=== PATIENT | male | born 1975 | race Caucasian/White ===

== ENCOUNTER 2020-10-21 10:22 | Emergency (ER) | payer OTHER ==
[2020-10-21] MEDS ORDERED: HYDROcodone/Acetaminophen 5/325 mg Tablet ONE (11:04)
== END 2020-10-21 11:15 | disposition home or self-care (01) ==
LOC: NAV ERS 10:22
DX: S51.811A Laceration without foreign body of right forearm, initial encounter (principal); S99.921A Unspecified injury of right foot, initial encounter; F17.210 Nicotine dependence, cigarettes, uncomplicated; W18.30XA Fall on same level, unspecified, initial encounter
CPT/HCPCS: 99283

== ENCOUNTER 2021-12-25 12:15 | Emergency (ER) | payer SELFPAY ==
[~2021-12-25 12:15] MED LIST: Iopamidol 370 76% 100 ML VIAL ONE
[2021-12-25] MEDS ORDERED: Sodium Chloride 0.9% 1,000 ML ONE ×2 (12:30→13:50)
[2021-12-25] MEDS ORDERED: Dicyclomine 20 MG TAB ONE (12:31)
[2021-12-25 12:49] LABS: Hemoglobin 16.4 g/dL (14.0-18.0); Mean Corpuscular HGB CONC 33.6 g/dL (32.0-36.0); Mean Corpuscular Hemoglobin 34.8 pg (27.0-31.0); Mean Platelet Volume 6.4 fL (7.4-10.4); Platelet Count 226 thou/uL (130-400); RBC Distribution Width 13.6 % (11.5-14.5); Red Blood Cell (RBC) Count 4.71 mill/uL (4.70-6.10)
[2021-12-25 12:53] LABS: Bilirubin Negative (Negative); Blood, Urine Negative (Negative); Clarity Clear (Clear); Glucose, Urine (Dipstick) Negative (Negative); Ketone, Urine Trace mg/dL (Negative); Leukocyte Negative (Negative); Nitrite Negative (Negative); Protein, Urine (Dipstick) Trace mg/dL (Neg-Trace); Urobilinogen 0.2 mg/dL (Less than 2)
[2021-12-25 13:01] LABS: ALT (SGPT) 50 U/L (8-55); AST (SGOT) 29 U/L (5-34); Albumin 4.1 g/dL (3.5-5.0); Alkaline Phosphatase 60 U/L (40-110); Anion Gap 20 mmol/L (10-20); BUN (Urea Nitrogen) 10 mg/dL (8.9-20.6); Bilirubin, Total 0.9 mg/dL (0.2-1.2); Calc. Creatinine Clearance 0 mL/min (70-130); Calcium 9.7 mg/dL (7.8-10.44); Carbon Dioxide 18 mmol/L (22-29); Chloride 99 mmol/L (98-107); Estimated GFR 107; Glucose 158 mg/dL (70-105); Protein, Total 7.1 g/dL (6.0-8.3); Sodium 134 mmol/L (136-145)
[2021-12-25 13:09] LABS: Lymphocytes 7 % (21-51); MDiff Complete? YES; Macrocytosis SLIGHT = 6-15 cells (100X) (0-5/hpf); Monocytes 4 % (0-10); Neutrophil 89 % (42-75); Platelet Morphology Comment Appears Adequate
[2021-12-25 13:12] LABS: Potassium 2.8 mmol/L (3.5-5.1)
[2021-12-25] MEDS ORDERED: Potassium Chloride 20 MEQ TAB ONE (13:26)
[2021-12-25] MEDS ORDERED: metroNIDAZOLE 500 MG/100 ML BAG ONE (13:50)
[2021-12-25] MEDS ORDERED: Ciprofloxacin Lactate/D5W 400 mg/200 ml Premix ONE (15:00)
[2021-12-25 15:17] LABS: Lactic Acid 2.5 mmol/L (0.5-2.2)
== END 2021-12-25 16:48 | disposition home or self-care (01) ==
LOC: NAV ERS 12:15
DX: K52.9 Noninfective gastroenteritis and colitis, unspecified (principal); F17.210 Nicotine dependence, cigarettes, uncomplicated
CPT/HCPCS: 36415; 74177; 80053; 81003; 83605; 85025; 87040; 93005; 96361; 96365; 96366; 96367; J0744; J7050; Q9967